=== PATIENT | female | born 1940 | race Caucasian/White ===

== ENCOUNTER 2022-10-09 10:28 | Outpatient (OUT) | payer MEDICARE, SELFPAY ==
[2022-10-09 11:21] LABS: Estimated Average Glucose 128 mg/dL; Glycohemoglobin A1C 6.1 % (4.5-6.2)
== END 2022-10-09 10:29 ==
LOC: LAB 10:32
PROVIDERS: PCP Family Medicine; Visit Provider Family Medicine
DX: E11.65 Type 2 diabetes mellitus with hyperglycemia (principal)
CPT/HCPCS: 36415; 83036

== ENCOUNTER 2023-04-13 08:17 | Outpatient (OUT) | payer MEDICARE, SELFPAY ==
[2023-04-13 08:46] LABS: Basophils Absolute Auto 0.1 10^3/uL (0.0-0.1); Eosinophils Absolute Auto 0.4 10^3/uL (0.0-0.7); Eosinophils Percent Auto 7.7 % (0.9-7.0); Hemoglobin 14.1 g/dL (12.0-16.0); Immature Granulocytes Abs Auto 0.02 10^3/uL (0.00-0.03); Immature Granulocytes Pct Auto 0.4 % (0.0-0.5); Lymphocytes Absolute Auto 1.2 10^3/uL (1.2-3.8); Lymphocytes Percent Auto 21.4 % (20.5-60.0); Mean Corpuscular HGB Conc 31.3 g/dL (29.9-35.2); Mean Corpuscular Hemoglobin 29.6 pg (26.7-34.0); Mean Corpuscular Volume 94.3 fL (81.0-99.0); Mean Platelet Volume 12.9 fL (9.5-13.5); Monocytes Absolute Auto 0.5 10^3/uL (0.3-0.8); Monocytes Percent Auto 8.9 % (1.7-12.0); Neutrophils Absolute Auto 3.4 10^3/uL (1.4-6.5); Neutrophils Percent Auto 59.6 % (43.0-75.0); Platelet Count 246 10^3/uL (150-450); Red Blood Count 4.77 10^6/uL (4.20-5.40); Red Cell Distribution Width 12.8 % (11.0-15.0); White Blood Count 5.6 10^3/uL (4.0-11.0)
[2023-04-13 09:14] LABS: Estimated Average Glucose 140 mg/dL; Glycohemoglobin A1C 6.5 % (4.5-6.2)
[2023-04-13 09:30] LABS: Alanine Aminotransferase 22 U/L (14-59); Albumin Globulin Ratio 1.2; Albumin Level 3.9 g/dL (3.4-5.0); Alkaline Phosphatase 83 U/L (46-116); Anion Gap 15.9; Aspartate Amino Transferase 20 U/L (15-37); BUN Creatinine Ratio 17.7; Bilirubin Direct 0.2 mg/dL (0.0-0.2); Bilirubin Total 1.4 mg/dL (0.2-1.0); Calcium 8.7 mg/dL (8.5-10.1); Carbon Dioxide 24.9 mmol/L (21.0-32.0); Chloride 105 mmol/L (98-107); Chol HDL Ratio 2.9; Cholesterol 164 mg/dL (<=200); Estimated GFR (African America >60 (>=60); Estimated GFR (Non-African Ame >60 (>=60); Globulin 3.3 g/dL; Glucose 154 mg/dL (74-106); HDL Cholesterol 56 mg/dL (40-60); LDL Cholesterol Calculated 92.4 mg/dL; Potassium 3.8 mmol/L (3.5-5.1); Sodium 142 mmol/L (136-145); Total Protein 7.2 g/dL (6.4-8.2); Triglycerides 78 mg/dL (<=150); VLDL CHOLESTEROL 15.6 mg/dL
== END 2023-04-13 08:18 | disposition home or self-care (01) ==
LOC: LAB 08:20
PROVIDERS: PCP Family Medicine; Visit Provider Family Medicine
DX: E11.65 Type 2 diabetes mellitus with hyperglycemia (principal); Z79.899 Other long term (current) drug therapy; I10 Essential (primary) hypertension; E78.5 Hyperlipidemia, unspecified
CPT/HCPCS: 36415; 80048; 80061; 80076; 82043; 83036; 85025

== ENCOUNTER 2024-04-15 08:12 | Outpatient (OUT) | payer MEDICARE, SELFPAY ==
[2024-04-15 08:40] LABS: Basophils Absolute Auto 0.1 10^3/uL (0.0-0.1); Basophils Percent Auto 1.5 % (0.2-2.0); Eosinophils Absolute Auto 0.3 10^3/uL (0.0-0.7); Eosinophils Percent Auto 4.4 % (0.9-7.0); Estimated Average Glucose 146 mg/dL; Glycohemoglobin A1C 6.7 % (4.5-6.2); Hematocrit 45.7 % (36.0-48.0); Hemoglobin 14.8 g/dL (12.0-16.0); Immature Granulocytes Abs Auto 0.02 10^3/uL (0.00-0.03); Immature Granulocytes Pct Auto 0.3 % (0.0-0.5); Lymphocytes Absolute Auto 1.5 10^3/uL (1.2-3.8); Lymphocytes Percent Auto 25.3 % (20.5-60.0); Mean Corpuscular HGB Conc 32.4 g/dL (29.9-35.2); Mean Corpuscular Hemoglobin 29.5 pg (26.7-34.0); Mean Platelet Volume 12.9 fL (9.5-13.5); Monocytes Absolute Auto 0.5 10^3/uL (0.3-0.8); Monocytes Percent Auto 8.5 % (1.7-12.0); Neutrophils Absolute Auto 3.5 10^3/uL (1.4-6.5); Platelet Count 233 10^3/uL (150-450); Red Blood Count 5.02 10^6/uL (4.20-5.40); Red Cell Distribution Width 13.1 % (11.0-15.0); White Blood Count 5.9 10^3/uL (4.0-11.0)
[2024-04-15 08:46] LABS: Alanine Aminotransferase 22 U/L (14-59); Albumin Globulin Ratio 1.1; Albumin Level 3.7 g/dL (3.4-5.0); Alkaline Phosphatase 87 U/L (46-116); Anion Gap 13.7; Aspartate Amino Transferase 19 U/L (15-37); Bilirubin Direct 0.2 mg/dL (0.0-0.2); Bilirubin Total 1.4 mg/dL (0.2-1.0); Carbon Dioxide 27.2 mmol/L (21.0-32.0); Chloride 103 mmol/L (98-107); Chol HDL Ratio 3.2; Cholesterol 177 mg/dL (<=200); Estimated GFR (African America >60 (>=60 mL/min/1.73m^2); Estimated GFR (Non-African Ame 57 (>=60 mL/min/1.73m^2); Globulin 3.4 g/dL; Glucose 167 mg/dL (74-106); HDL Cholesterol 56 mg/dL (40-60); LDL Cholesterol Calculated 100.8 mg/dL; Potassium 3.9 mmol/L (3.5-5.1); Sodium 140 mmol/L (136-145); Total Protein 7.1 g/dL (6.4-8.2); Triglycerides 101 mg/dL (<=150); VLDL CHOLESTEROL 20.2 mg/dL
[2024-04-15 09:11] LABS: Creatinine Urine Random 69.08 mg/dL (20.00-300.00); Microalbum Creatinine Ratio Ur 18.8 mg/g (0.0-29.9); Microalbumin Urine Random <1.3 mg/dL (<=30.0)
== END 2024-04-15 08:13 | disposition home or self-care (01) ==
LOC: LAB 08:12
PROVIDERS: PCP Family Medicine; Visit Provider Family Medicine
DX: E78.5 Hyperlipidemia, unspecified (principal); E11.65 Type 2 diabetes mellitus with hyperglycemia; I10 Essential (primary) hypertension; Z79.899 Other long term (current) drug therapy
CPT/HCPCS: 36415; 80048; 80061; 80076; 82043; 82570; 83036; 85025

== ENCOUNTER 2024-10-15 10:02 | Outpatient (OUT) | payer MEDICARE, SELFPAY ==
--- OUTSIDE RECORDS SUMMARY | 2024-10-13 10:30 | XMS_ITS | Encounter Summary ---
Author Organization [facility] Address [address] [place] [address] Care Team Providers Care Sheet Rock Layer Name Role Phone Mart Mancini MD Primary Care Provider [phone] Mart Mancini MD Unavailable Reason for Visit * Reason Comments Medicare Annual Wellness Visit Subsequen t wellness Encounter Details Date Type Department Care Team (Late st Contact Info) Description 10/13/2024 10:30 AM EDT Office Visit [facility] [address] [place] [phone] Mart Mancini MD [address] [place] [address] Medicare annual wellness visit, subsequent (Primary Dx); Type 2 diabetes mellitus with hyperglycemia, without long-term current use of insulin (HCC); Essential hypertension, benign ; Dyslipidemia ; Type 2 diabetes mellitus with other specified complication (HCC) Social History Tobacco Use Types Packs/Day Years Used Date Smoking Tobacco: Never Smokeless Tobacco: Never Alcohol Use Standard Drinks/Week Comments Never 0 (1 standard drink = 0.6 oz pur e alcohol) PHQ-2 Answer Date Recorded Patient Health Questionnaire-2 Score 0 10/13/2024 Comments Unknown Sex and Gender Information Value Date Recorded Sex Assigned at Not on file Legal Sex Female 6:44 PM EDT Gender Identity Not on file Sexual Orientation Not on file documented as of this encounter Last Filed Vital Signs Vital Sign Reading Time Taken Comments Blood Pressure 112/60 10/13/2024 10:27 AM EDT Pulse 78 10/13/2024 10:27 AM EDT Temperature 36.3 C (97.3 F) 10/13/2024 10:27 AM EDT Respiratory Rate 22 10/13/2024 10:27 AM EDT Oxygen Saturation 98% 10/13/2024 10:27 AM EDT Inhaled Oxygen Concentration - - Weight 63.5 kg (140 lb) 10/13/2024 10:27 AM EDT Height 162.6 cm (5' 4 ) 10/13/2024 10:27 AM EDT Body Mass Index 24.03 10/13/2024 10:27 AM EDT documented in this encounter Functional Status * Over the past 2 weeks, how often have you been bothered by any of the following problems? Question Answer Date of Assessment Author Little interest or pleasure in doing things Not at all 10/13/2024 10:00 AM NEVA MOREIRA Feeling down, depressed, or hopeless Not at all 09/28 10:00 AM NEVA MOREIRA Patient Health Questionnaire-2 Score 0 09/28 10:00 AM NEVA MOREIRA * Question Answer Date of Assessment Author Trouble falling or staying a sleep, or sleeping too much Not at all 10/13/2024 10:00 AM NEVA MOREIRA Feeling tired or having arnold le energy Several days 10/13/2024 10:00 AM NEVA MOREIRA Poor appetite or overeating Not at all 10/13/2024 10 :00 AM NEVA MOREIRA Feeling bad about yourself - or that you are a failure or have let yourself or your family down Not at all 10/13/2024 10:00 AM NEVA MOREIRA Trouble concentrating on thi ngs, such as reading the newspaper or watching television Not at all 10/13/2024 10:00 AM NEVA MOREIRA Moving or speaking so slowly that other people could have noticed? Or the opposite - being so fidgety or restless that you have been moving around a lot more than usual. Not at all 10/13/2024 10:00 AM NEVA MOREIRA Thoughts that you would be b álvaro off or hurting yourself in some way Not at all 10/13/2024 10:00 AM NEVA MOREIRA Patient Health Questionnaire -9 Score 1 10/13/2024 10:00 AM NEVA MOREIRA documented as of this encounter Progress Notes * Mart Mancini MD - 10/13/2024 11:06 AM EDTAssociated Problem(s): Medicare annual wellness visit, subsequent Due for labs. Discussed proper diet and regular aerobic exercise. Need aerobic exercise 5-6 days a week for 30 minutes at a time. Smaller portions and limit total calories. Tetanus every 10 years. Advised not to smoke. * Mart Mancini MD - 10/13/2024 10:30 AM EDT Images from the original note were not included. Subjective Patient ID: Aliza Nicholas is a 84 y.o. female who presents for Medicare Annual Wellness Visit Subsequent (wellness). Presents for medicare annual wellness visit. Patient stable today. Weight unchanged over the past year. Tries to stay active around house. Tries to watch diet and eat healthy. Increased fruits and vegetables. Smaller portions and limits snacking. Tries to limit total daily calories. Due for labs. Review of Systems Respiratory: Negative for cough, shortness of breath and wheezing. Cardiovascular: Negative for chest pain and palpitations. Gastrointestinal: Negative for abdominal pain, diarrhea, nausea and vomiting. Genitourinary: Negative for dysuria. Objective Physical Exam Constitutional: General: She is not in acute distress. Appearance: Normal appearance. HENT: Head: Normocephalic. Right Ear: Tympanic membrane normal. Left Ear: Tympanic membrane normal. Eyes: Extraocular Movements: Extraocular movements intact. Pupils: Pupils are equal, round, and reactive to light. Cardiovascular: Rate and Rhythm: Normal rate and regular rhythm. Heart sounds: No murmur heard. No friction rub. No gallop. Pulmonary: Effort: Pulmonary effort is normal. Breath sounds: Normal breath sounds. No wheezing, rhonchi or rales. Abdominal: General: Bowel sounds are normal. There is no distension. Palpations: Abdomen is soft. Tenderness: There is no abdominal tenderness. There is no guarding or rebound. Musculoskeletal: Cervical back: Neck supple. Right lower leg: No edema. Left lower leg: No edema. Neurological: Mental Status: She is alert. Assessment/Plan Problem List Items Addressed This Visit Type 2 diabetes mellitus with hyperglycemia, without long-term current use of insulin (HCC) Relevant Orders Hemoglobin A1c Essential hypertension, benign Dyslipidemia Medicare annual wellness visit, subsequent - Primary Due for labs. Discussed proper diet and regular aerobic exercise. Need aerobic exercise 5-6 days a week for 30 minutes at a time. Smaller portions and limit total calories. Tetanus every 10 years. Advised not to smoke. documented in this encounter Plan of Treatment Upcoming Encounters Date Type Department Care Team (Late st Contact Info) Description 04/14/2025 9:45 AM EST Office Visit [facility] [address] [place] [address] Mart Mancini MD [address] [place] [phone] Scheduled Orders Name Type Priority Associated Diagnoses Orde r Schedule Hemoglobin A1c Lab Routine Type 2 diabetes mellitus with hyperglycemia, without long-term current use of insulin (HCC) Expected: 10/13/2024 (Approximate), Expires: 10/13/2025 documented as of this encounter Visit Diagnoses Diagnosis Medicare annual wellness visit, subsequent- Primary Type 2 diabetes mellitus with hyperglycemia, without long-term current use of insulin (HCC) Essential hypertension, benign Essential hypertension, benign Dyslipidemia Other and unspecified hyperlipidemia Type 2 diabetes mellitus with other specified complication (HCC) documented in this encounter Additional Health Concerns Assessment Noted Time PHQ-9 Depression Total Score: 1 10/14/19 25 10:00 AM EDT documented as of this encounter Care Teams Sheet Rock Layer Relationship Specialty Start Date End Date Mart Mancini MD [address] [place] [address] PCP - General Family Medicine 04/10/23 Mart Mancini MD [address] [place] [address] PCP - ACO Reach 06/06/24 documented as of this encounter
--- OUTSIDE RECORDS SUMMARY | 2024-10-15 10:07 | XMS_ITS | Encounter Summary ---
Author Organization [facility] Address [address] [place] [facility] [place] [address] Care Team Providers Care Power Plant Electrician Name Role Phone Mart Mancini MD Primary Care Provider [phone] Mart Mancini MD Unavailable Encounter Details Date Type Department Care Team (Late st Contact Info) Description 10/13/2024 Bamboo flowsheet [facility] [address] [place] [address] Mart Mancini MD [address] [place] [phone] Social History Tobacco Use Types Packs/Day Years [...] on file documented as of this encounter Functional Status * Over the past 2 weeks, how often have you been bothered by any of the following problems? Question Answer Date of Assessment Author Little interest or pleasure in doing things Not at all 10/13/2024 10:00 AM EDT NEVA SEVERINO Feeling down, depressed, or hopeless Not at all 09/28 10:00 AM EDT NEVA SEVERINO Patient Health Questionnaire-2 Score 0 09/28 10:00 AM EDT NEVA SEVERINO * Question Answer Date of Assessment Author [...] NEVA MOREIRA documented as of this encounter Plan of Treatment Upcoming Encounters Date Type Department Care Team (Late st Contact Info) Description 04/14/2025 9:45 AM EST Office Visit [facility] [address] [place] [address] Mart Mancini MD [address] [place] [phone] documented as of this encounter Visit Diagnoses Not on filedocumented in this encounter Additional Health Concerns Assessment Noted Time PHQ-9 Depression Total Score: 1 10/14/19 25 10:00 AM EDT documented as of this encounter Care Teams Power Plant Electrician Relationship Specialty Start Date End Date Mart Mancini MD [address] [place] [phone] PCP - General Family Medicine 04/10/23 Mart Mancini MD [address] [place] [address] PCP - ACO Reach 06/06/24 documented as of this encounter
--- OUTSIDE RECORDS SUMMARY | 2024-10-15 10:07 | XMS_ITS | Clinical Summary ---
Author Organization [facility] Address [id number] [address] [place] [address] Care Team Providers Care Electric Transfer Operator Name Role Phone Unavailable Primary Care Provider Unavailabl e Social History Tobacco Use Types Packs/Day Years Used Date Smoking Tobacco: Never Assessed Childcare Answer Date Recorded Childcare Unknown 10/09/2018 Employment Answer Date Recorded Employment Unknown 10/09/2018 Comments Unknown Sex and Gender Information Value Date Recorded Sex Assigned at Not on file Legal Sex Female 11:23 AM EDT Gender Identity Not on file Sexual Orientation Not on file Plan of Treatment Health Maintenance Due Date Last Done Comments Depression Screening 1952 Tobacco Screening 1952 DTaP,Tdap and Td Vaccines (1 - Tdap) 1958 Zoster (Shingles) Vaccine (1 of 2) 1989 Fall Risk Screening 2004 Influenza Vaccine 12/29/2024 Medical Devices Not on file
--- OUTSIDE RECORDS SUMMARY | 2024-10-15 10:07 | XMS_ITS | Clinical Summary ---
Author Organization [facility] Address [address] [facility] [place] [address] Phone Care Team Providers Care High Lighter Name Role Phone Unavailable Primary Care Provider Unavailabl e Social History Tobacco Use Types Packs/Day Years Used Date Smoking Tobacco: Never Assessed Comments Unknown Sex and Gender Information Value Date Recorded Sex Assigned at Not on file Legal Sex Female 11:06 AM EST Gender Identity Not on file Sexual Orientation Not on file Plan of Treatment Not on file
--- OUTSIDE RECORDS SUMMARY | 2024-10-15 10:07 | XMS_ITS | Encounter Summary ---
Author Organization [facility] Address [address] [facility] [place] [address] Care Team Providers Care Thermocouple Tester Name Role Phone Mart Manciin MD Primary Care Provider [phone] Mart Mancini MD Unavailable Encounter Details Date Type Department Care Team ([facility] Contact Info) Description 04/13/2023 Orders Only [facility] [address] [place] [address] Mart Mancini MD [address] [place] [address] Social History Tobacco Use Types Packs/Day Years Used Date Smoking Tobacco: Never Smokeless Tobacco: Never Alcohol Use Standard Drinks/Week Comments Never 0 (1 standard drink = 0.6 oz pur e alcohol) Comments Unknown Sex and Gender Information Value Date Recorded Sex Assigned at Not on file Legal Sex Female 6:44 PM EDT Gender Identity Not on file Sexual Orientation Not on file documented as of this encounter Plan of Treatment Upcoming Encounters Date Type Department Care Team (Late Contact Info) Description 04/14/2025 9:45 AM EST Office Visit [facility] [address] [place] [address] Mart Mancini MD [address] [place] [address] documented as of this encounter Visit Diagnoses Not on filedocumented in this encounter Care Teams Thermocouple Tester Relationship Specialty Start Date End Date Mart Mancini MD [address] [place] [phone] PCP - General Family Medicine 04/10/23 Mart Mancini MD [address] [place] [phone] PCP - ACO Reach 06/06/24 documented as of this encounter
--- OUTSIDE RECORDS SUMMARY | 2024-10-15 10:07 | XMS_ITS | Encounter Summary ---
Author Organization [facility] Address [address] [facility] [place] [address] Care Team Providers Care Copier Operator Name Role Phone Mart Mancini MD Primary Care Provider [phone] Mart Mancini MD Unavailable Encounter Details Date Type Department Care Team ([facility] Contact Info) Description 04/11/2023 Abstract [facility] [address] [place] [address] Mart Mancini MD [address] [place] [address] Social History Tobacco Use Types [...] Upcoming Encounters Date Type Department Care Team ([facility] Contact Info) Description 04/14/2025 9:45 AM EST Office Visit [facility] [address] [place] [address] Mart Mancini MD [address] [place] [address] documented as of this encounter Visit Diagnoses Not on filedocumented in this encounter Care Teams Copier Operator Relationship Specialty Start Date End Date Mart Mancini MD [address] [place] [address] PCP - General Family Medicine 04/10/23 Mart Mancini MD [address] [place] [phone] PCP - ACO Reach 06/06/24 documented as of this encounter
--- OUTSIDE RECORDS SUMMARY | 2024-10-15 10:27 | XMS_ITS | CCD ---
Author Organization [facility] Care Team Providers Care Receiver Setter Name Role Phone DR MART NEIL Primary Care Unavailable FIOR DOWLING Consulting Unavailable FIOR DOWLING Admitting Unavailable FIOR DOWLING Attending Unavailable RASHAAD, DR MART Garcia Admitting Unavailable RASHAAD, DR MART Garcia Attending Unavailable RASHAAD, DR MART Garcia Primary Care Unavailable RASHAAD, DR MART Garcia Consulting Unavailable RASHAAD, DR MART Garcia Admitting Unavailable RASHAAD, DR MART Garcia Attending Unavailable RASHAAD, DR MART Garcia Primary Care Unavailable RASHAAD, DR MART Garcia Consulting Unavailable Mart Neil MD Primary Care Provider Matr Neil MD Unavailable MART NEIL Attending Unavailable RASHAAD, MART Attending Unavailable RASHAAD, MART Attending Unavailable Medications Current Medications Medication Drug Class(es) Dates Sig (Normalized) Sig (Original) amLODIPine 10 mg oral tablet (7 sources) Dihydropyridine Calcium Channel Corazon Start: 09-08-2024 take 1 tablet by mouth once daily amLODIPine (Norvasc) 10 MG tablet Indications: Other specified cough , Cough TAKE 1 TABLET BY MOUTH EVERY DAY 90 tablet 3 09/08/2024 Active Start: 09-03-2023 take 1 tablet by karthik th once daily amLODIPine (Norvasc) 10 MG tablet Indications: Other specified cough , Cough TAKE 1 TABLET BY MOUTH EVERY DAY 90 tablet 3 09/03/2023 Active glipiZIDE 5 mg oral tablet (7 sources) Sulfonylurea Start: 12-24-2023 take 1 tablet by mouth once daily glipiZIDE (Glucotrol) 5 MG tablet Indications: Type 2 diabetes mellitus with hyperglycemia (HCC) TAKE 1 TABLET BY MOUTH EVERY DAY 90 tablet 3 12/24/2023 Active lovastatin 20 mg oral tablet (7 sources) HMG-CoA Reductase Inhibitor Start: 06-02-2024 take 1 tablet by mouth once daily lovastatin (Mevacor) 20 MG tablet Indications: Hyperlipidemia, unspecified TAKE 1 TABLET BY MOUTH EVERY DAY 90 tablet 3 06/02/2024 Active Start: 09-03-2023 take 1 tablet by karthik th once daily lovastatin (Mevacor) 20 MG tablet Indications: Hyperlipidemia, unspecified (CMS/HCC) TAKE 1 TABLET BY MOUTH EVERY DAY 90 tablet 3 09/03/2023 Active 24 hr metFORMIN hydrochloride 500 mg extended release oral tablet (7 sources) Biguanide Start: 08-20-2024 take 1 tablet by mouth once daily metFORMIN XR (Glucophage-XR) 500 MG 24 hr tablet Indications: Type 2 diabetes mellitus without complications (HCC) TAKE 1 TABLET BY MOUTH EVERY DAY 90 tablet 1 08/20/2024 Active Start: 02-25-2024 take 1 tablet by karthik th once daily metFORMIN XR (Glucophage-XR) 500 MG 24 hr tablet Indications: Type 2 diabetes mellitus without complications (CMS/HCC) TAKE 1 TABLET BY MOUTH EVERY DAY 90 tablet 1 02/25/2024 Active Problems Active Problems Problem Classification Problem Date Documented Date Episodic/Chronic Diabetes mellitus with complications (17 sources) Type 2 diabetes mellitus with hyperglycemia; Translations: [Hyperglycemia due to type 2 diabetes mellitus] Onset: 03-16-2022 Chronic Disorders of lipid metabolism (12 sources) Hyperlipidemia, unspecified; Translations: [Dyslipidemia] Onset: 03-20-2022 04-11-2024 Chronic Essential hypertension (11 sources) Benign essential hypertension; Translations: [Essential (primary) hypertension] Onset: 04-11-2023 04-11-2024 Chronic Gastritis and duodenitis (7 sources) Chronic superficial gastritis; Translations: [Chronic superficial gastritis without bleeding] Onset: 04-11-2023 Resolved: 04-11-2023 04-11-2023 Chronic Genitourinary symptoms and ill-defined conditions (4 sources) Dysuria; Translations: [Personal history of urinary (tract) infections] Onset: 08-14-2022 Episodic Other aftercare (1 source) Other intermodal truck driver (current) drug therapy; Translations: [OTH CUSTODIAL CURRENT DRUG THERAPY] Onset: 08-15-2022 Episodic Other upper respiratory disease (9 sources) Allergic rhinitis due to pollen; Translations: [Allergic rhinitis due to pollen] Onset: 04-11-2023 04-11-2024 Chronic Retinal detachments; defects; vascular occlusion; and retinopathy (7 sources) Degenerative disorder of macula ; Translations: [Unspecified macular degeneration] Onset: 04-11-2023 04-11-2023 Chronic Spondylosis; intervertebral disc disorders; other back problems (9 sources) Degeneration of lumbar intervertebral disc; Translations: [Degeneration of intervertebral disc of lumbar region with discogenic back pain] Onset: 04-11-2023 04-11-2024 Chronic Urinary tract infections (1 source) Urinary tract infection, site not specified; Translations: [UTI SITE NOT SPECIFIED] Onset: 08-15-2022 Episodic Past or Other Problems Problem Classification Problem Date Documented Da te Episodic/Chronic Coronary atherosclerosis and other heart disease (7 sources) Coronary arteriosclerosis; Translations: [Atherosclerotic heart disease of [place] coronary artery without angina pectoris] Onset: 04-11-2023 Resolved: 04-11-2023 04-11-2023 Chronic Hyperplasia of prostate (7 sources) Benign prostatic hypertrophy without outflow obstruction; Translations: [Benign prostatic hyperplasia without lower urinary tract symptoms] Onset: 04-11-2023 Resolved: 04-11-2023 04-11-2023 Chronic Mood disorders (2 sources) Mood disorders Onset: 10-13-2024 10-13-2024 Other aftercare (9 sources) Long-term current use of drug therapy; Translations: [Other retirement (current) drug therapy] Onset: 04-11-2023 04-11-2024 Episodic Other liver diseases (7 sources) Fatty (change of) liver, not elsewhere classified; Translations: [Other chronic nonalcoholic liver disease] Onset: 04-11-2023 Resolved: 04-11-2023 04-11-2023 Chronic Results Test Name Value Interpretation Reference Range Facility ALL CBC WITH AUTO DIFFon BASOPHILS ABSOLUTE AUTO 0.1 [facility] Basophils/100 WBC (Bld) 1.5 % 0.2 - 2.0 % [facility] Eosinophils/100 WBC (Bld) 4.4 % 0.9 - 7.0 % [facility] Erythrocyte distribution width (RBC) [Ratio] 13.1 % 11.0 - 15.0 % [facility] Hematocrit (Bld) [Volume fraction] 45.7 % 36.0 - 48.0 % [facility] [Mass/Vol] 14.8 g/dL 12.0 - 16.0 g/dL [facility] IMMATURE GRANULOCYTES ABS AUTO 0.02 [facility] Immature granulocytes/100 WBC (Bld) 0.3 % 0.0 - 0.5 % [facility] LYMPHOCYTES ABSOLUTE AUTO 1.5 [facility] Lymphocytes/100 WBC (Bld) 25.3 % 20.5 - 60.0 % [facility] MCH (RBC) [Entitic mass] 29.5 pg 26.7 - 34.0 pg [facility] MCHC (RBC) [Mass/Vol] 32.4 g/dL 29.9 - 35.2 g/dL [facility] MCV (RBC) [Entitic vol] 91 fL 81.0 - 99.0 fL [facility] MONOCYTES ABSOLUTE AUTO 0.5 [facility] Monocytes/100 WBC (Bld) 8.5 % 1.7 - 12.0 % [facility] NEUTROPHILS ABSOLUTE AUTO 3.[address] [facility] Neutrophils/100 WBC (Bld) 60 % 43.0 - 75.0 % [facility] Platelet mean volume (Bld) [Entitic vol] 12.9 fL 9.5 - 13.5 fL [facility] EO # 0.3 [facility] PLT 233 [facility] RBC 5.02 [facility] WBC 5.9 [facility] CULTURE URINEon 08-14-2022 CULTURE URINE Culture Observations: RASHEEDA TO FOLLOW. Isolate 1 Escherichia coli >100,000 cfu/mL of Normal [facility] Comment on above: Performed By: #### U RCX #### [facility] [address] [place] [address] Dr. Ryan Gee ER URINE PROFILEon 3 Bilirubin Ql (U) Negative Normal NEGATIVE [facility] Comment on above: Performed By: #### ROMY DIXON #### [facility] [address] [place] [address] Dr. Ryan Gee Clarity (U) CLEAR Normal CLEAR [facility] Comment on above: Performed By: #### E ROMY KHALIL #### [facility] [address] [place] [address] Dr. Ryan Gee Color (U) ORANGE Abnormal YELLOW [facility] Comment on above: Performed By: #### E PLACIDOR UMICRO #### [facility] [address] [place] [address] Dr. Ryan DOMINGO A micrscopic examination will be performed if indicated. Normal [facility] Comment on above: Performed By: #### E RUR, UMICRO #### [facility] [address] [place] [address] Dr. Ryan Gee Glucose Ql (U) 250 mg/dl Abnormal NEGATIVE [facility] Comment on above: Performed By: #### E RUR, UMICRO #### [facility] [address] [place] [address] Dr. Ryan Gee Hemoglobin Ql (U) LARGE Abnormal NEGATIVE [facility] Comment on above: Performed By: #### E RUR, UMICRO #### [facility] [address] [place] [address] Dr. Ryan Gee Ketones Ql (U) Negative Normal NEGATIVE [facility] Comment on above: Performed By: #### E RUR, UMICRO #### [facility] [address] [place] [address] Dr. Ryan Gee LEUKOCYTES MODERATE Abnormal NEGATIVE [facility] Comment on above: Performed By: #### E RUR, UMICRO #### [facility] [address] [place] [address] Dr. Ryan Gee Nitrite Ql (U) Positive Abnormal NEGATIVE [facility] Comment on above: Performed By: #### E RUR, UMICRO #### [facility] [address] [place] [address] Dr. Ryan Gee pH (U) 5.0 [pH] Normal 5-9 [facility] Comment on above: Performed By: #### E RUR, UMICRO #### [facility] [address] [place] [address] Dr. Ryan Gee Protein (U) [Mass/Vol] 100 mg/dL Abnormal NEGATIVE/ TRACE [facility] Comment on above: Performed By: #### E RUR, UMICRO #### [facility] [address] [place] [address] Dr. Ryan Gee SPEC GRAVITY 1.025 Normal 1.005-<=1.025 [facility] Comment on above: Performed By: #### Glenn KHALIL, UMICRO #### [facility] [address] [place] [address] Dr. Ryan Gee UR MICRO IND INDICATED Normal [facility] Comment on above: Performed By: #### Glenn KHALIL UMICRO #### [facility] [address] [place] [address] Dr. Ryan Gee Urobilinogen Qn (U) 1.0 {Cherrie'U}/dL Normal 0.2 - 1. 0 [facility] Comment on above: Performed By: #### Glenn KHALIL UMICRO #### [facility] [address] [place] [address] Dr. Ryan Gee URINE MICROSCOPIC ONLYon BACTERIA SMALL Abnormal NONE SEEN [facility] Comment on above: Performed By: #### Glenn KHALIL UMICRO #### [facility] [address] [place] [address] Dr. Ryan Gee Bacteria identified Cx Nom (U) INDICATED Normal [facility] Comment on above: Performed By: #### Glenn KHALIL UMICRO #### [facility] [address] [place] [address] Dr. Ryan Gee CAST NONE SEEN Normal NONE SEEN [facility] Comment on above: Performed By: #### Glenn KHALIL UMICRO #### [facility] [address] [place] [address] Dr. Ryan Gee Crystals LM Nom (Urine sed) NONE SEEN Normal NONE SEEN [facility] Comment on above: Performed By: #### Glenn KHALIL UMICRO #### [facility] [address] [place] [address] Dr. Ryan Gee Epithelial cells LM Ql (Urine sed) MODERATE Abnormal NONE SEEN /RARE [facility] Comment on above: Performed By: #### Glenn KHALIL UMICRO #### [facility] [address] [place] [address] Dr. Ryan Gee MUCOUS NONE SEEN Normal NONE SEEN [facility] Comment on above: Performed By: #### ROMY DIXON #### [facility] [address] [place] [address] Dr. Ryan Gee RBC (U) [#/Vol] /uL Abnormal 0-2 [facility] Comment on above: Performed By: #### ROMY DIXON #### [facility] [address] [place] [address] Dr. Ryan Gee WBC (U) [#/Vol] /uL Abnormal NONE SEEN [facility] Comment on above: Performed By: #### ROMY DIXON #### [facility] [address] [place] [address] Dr. Ryan Gee CBC AUTO DIFFon 03-16-2022 BASO # 0.1 103/ul Normal 0.0-0.1 [facility] Comment on above: Performed By: #### C BC #### [facility] [address] [place] [address] Dr. Ryan Gee Basophils/100 WBC (Bld) 1.7 % Normal 0.2-2.0 [facility] Comment on above: Performed By: #### C BC #### [facility] [address] [place] [address] Dr. Ryan Gee EO # 0.1 103/ul Normal 0.0-0.7 [facility] Comment on above: Performed By: #### C BC #### [facility] [address] [place] [address] Dr. Ryan Gee Eosinophils/100 WBC (Bld) 2.6 % Normal 0.9-7.0 [facility] Comment on above: Performed By: #### C BC #### [facility] [address] [place] [address] Dr. Ryan Gee Erythrocyte distribution width (RBC) [Ratio] 12.9 % Normal 11.0-15.0 [facility] Comment on above: Performed By: #### C BC #### [facility] [address] [place] [address] Dr. Ryan Gee Hematocrit (Bld) [Volume fraction] 45.7 % Normal 36.0-48.0 [facility] Comment on above: Performed By: #### C BC #### [facility] [address] [place] [address] Dr. Ryan Gee Hemoglobin (Bld) [Mass/Vol] 15.0 g/dL Normal 12.0-16.0 [facility] Comment on above: Performed By: #### C BC #### [facility] [address] [place] [address] Dr. Ryan Gee IG # 0.01 10e3/ul Normal 0.00-0.03 [facility] Comment on above: Performed By: #### C BC #### [facility] [address] [place] [address] Dr. Ryan Gee IG % 0.2 % Normal 0.0-0.5 [facility] Comment on above: Performed By: #### C BC #### [facility] [address] [place] [address] Dr. Ryan Gee LYMPH # 1.2 103/ul Normal 1.2-3.8 [facility] Comment on above: Performed By: #### C BC #### [facility] [address] [place] [address] Dr. Ryan Gee Lymphocytes/100 WBC (Bld) 26.1 % Normal 20.5-60.0 [facility] Comment on above: Performed By: #### C BC #### [facility] [address] [place] [address] Dr. Ryan Gee MANUAL DIFF REQ NO Normal [facility] Comment on above: Performed By: #### C BC #### [facility] [address] [place] [address] Dr. Ryan Gee MCH (RBC) [Entitic mass] 29.7 pg Normal 26.7-34.0 [facility] Comment on above: Performed By: #### C BC #### [facility] [address] [place] [address] Dr. Ryan Gee MCHC (RBC) [Mass/Vol] 32.8 g/dL Normal 29.9-35.2 [facility] Comment on above: Performed By: #### C BC #### [facility] [address] [place] [address] Dr. Ryan Gee MCV (RBC) [Entitic vol] 90.5 fL Normal 81.0-99.0 [facility] Comment on above: Performed By: #### C BC #### [facility] [address] [place] [address] Dr. Ryan Gee MONO # 0.6 103/ul Normal 0.3-0.8 [facility] Comment on above: Performed By: #### C BC #### [facility] [address] [place] [address] Dr. Ryan Gee Monocytes/100 WBC (Bld) 13.9 % Critically high 1.7-12.0 [facility] Comment on above: Performed By: #### C BC #### [facility] [address] [place] [address] Dr. Ryan Gee NEUT # 2.5 103/ul Normal 1.4-6.5 [facility] Comment on above: Performed By: #### C BC #### [facility] [address] [place] [address] Dr. Ryan Gee Neutrophils/100 WBC (Bld) 55.5 % Normal 43.0-75.0 [facility] Comment on above: Performed By: #### C BC #### [facility] [address] [place] [address] Dr. Ryan Gee Platelet mean volume (Bld) [Entitic vol] 13.4 fL Normal 9.5-13.5 [facility] Comment on above: Performed By: #### C BC #### [facility] [address] [place] [address] Dr. Ryan Gee PLT 201 103/ul Normal 150-450 [facility] Comment on above: Performed By: #### C BC #### [facility] [address] [place] [address] Dr. Ryan Gee RBC 5.05 106/ul Normal 4.20-5.40 [facility] Comment on above: Performed By: #### C BC #### [facility] [address] [place] [address] Dr. Ryan Gee WBC 4.6 103/ul Normal 4.0-11.0 [facility] Comment on above: Performed By: #### C BC #### [facility] [address] [address] [address] Ryan Gee GLYCOHEMOGLOBIN A1Con 2021 ADA RECOMMENDATION SEE BELOW Normal [facility] Comment on above: Result Comment: ADA RECOMMENDED LIMIT 4.0 - 6.0 ADA THERAPEUTIC TARGET < 7.0 ACTION SUGGESTED > 7.0 Performed By: #### A 1C #### [facility] [address] [place] [address] Dr. Ryan Gee Glucose [Mass/Vol] 137 mg/dL Normal [facility] Comment on above: Performed By: #### A 1C #### [facility] [address] [place] [address] Dr. Ryan Gee HbA1c (Bld) [Mass fraction] 6.4 % Critically high 4.5-6.2 [facility] Comment on above: Performed By: #### A 1C #### [facility] [address] [place] [address] Dr. Ryan Gee LIPID PROFILEon 03-16-2022 CHOL-HDL RATIO NORM SEE BELOW Normal [facility] Comment on above: Result Comment: 3.3 - 4.4 LOW RISK 4.4 - 7.1 AVERAGE RISK 7.1 - 11.0 MODERATE RISK >11.0 HIGH RISK Performed By: #### B MP, LIVER, LIPID #### [facility] [address] [address] [address] Ryan Gee Cholesterol [Mass/Vol] 165 mg/dL Normal <=200 [facility] Comment on above: Performed By: #### B MP, LIVER, LIPID #### [facility] [address] [place] [address] Dr. Ryan Gee Cholesterol in HDL [Mass/Vol] 50 mg/dL Normal 40-60 [facility] Comment on above: Performed By: #### B MP, LIVER, LIPID #### [facility] [address] [address] [address] Ryan Gee Cholesterol in LDL [Mass/Vol] 78.2 mg/dL Normal [facility] Comment on above: Performed By: #### B MP, LIVER, LIPID #### [facility] [address] [address] [address] Ryan Gee Cholesterol.total/Cho lesterol in HDL [Mass ratio] 3.3 {ratio} Normal [facility] Comment on above: Performed By: #### B MP, LIVER, LIPID #### [facility] [address] [address] [address] Ryan Gee HDL NORMAL > or = 60 mg/dl - LOW CARDIOVASCULAR RISK <40 mg/dl - HIGH CARDIOVASCULAR RISK Normal [facility] Comment on above: Performed By: #### B MP, LIVER, LIPID #### [facility] [address] [address] [address] Ryan Gee LDL CALC NORMAL SEE BELOW Normal [facility] Comment on above: Result Comment: <100 mg/dl OPTIMAL 100 - 129 mg/dl NEAR OR ABOVE OPTIMAL 130 - 159 mg/dl BORDERLINE HIGH 160 - 189 mg/dl HIGH >190 mg/dl VERY HIGH Performed By: #### B MP, LIVER, LIPID #### [facility] [address] [address] [address] Ryan Gee Triglyceride [Mass/Vol] 184 mg/dL Critically high <=150 [facility] Comment on above: Performed By: #### B MP, LIVER, LIPID #### [facility] [address] [address] [address] Ryan Gee VLDL CALC 36.8 mg/dL Normal [facility] Comment on above: Performed By: #### B MP, LIVER, LIPID #### [facility] [address] [address] [address] Ryan Gee LIVER PROFILEon 03-16-2022 Albumin [Mass/Vol] 4.0 g/dL Normal 3.4-5.0 [facility] Comment on above: Performed By: #### B MP, LIVER, LIPID #### [facility] [address] [address] [address] Ryan Gee Albumin/Globulin [Mass ratio] 1.3 {ratio} Normal [facility] Comment on above: Performed By: #### B MP, LIVER, LIPID #### [facility] [address] [address] [address] Ryan Gee ALP [Catalytic activity/Vol] 80 U/L Normal 46-116 [facility] Comment on above: Performed By: #### B MP, LIVER, LIPID #### [facility] [address] [address] [address] Ryan Gee ALT [Catalytic activity/Vol] 22 U/L Normal 14-59 [facility] Comment on above: Performed By: #### B MP, LIVER, LIPID #### [facility] [address] [address] [address] Ryan Gee AST [Catalytic activity/Vol] 19 U/L Normal 15-37 [facility] Comment on above: Performed By: #### B MP, LIVER, LIPID #### [facility] [address] [address] [address] Ryan Gee BILI, CONJUGATED 0.2 mg/dL Normal 0.0-0.2 [facility] Comment on above: Performed By: #### B MP, LIVER, LIPID #### [facility] [address] [address] [address] Ryan Gee Bilirubin [Mass/Vol] 1.2 mg/dL Critically high 0.2-1.0 [facility] Comment on above: Performed By: #### B MP, LIVER, LIPID #### [facility] [address] [address] [address] Ryan Gee Globulin (S) [Mass/Vol] 3.1 g/dL Normal [facility] Comment on above: Performed By: #### B MP, LIVER, LIPID #### [facility] [address] [address] [address] Ryan Gee Protein [Mass/Vol] 7.1 g/dL Normal 6.4-8.2 [facility] Comment on above: Performed By: #### B MP, LIVER, LIPID #### [facility] [address] [address] [address] Ryan Gee MICROALBUMIN, RAND URon 11- mALB 4.6 mg/L Normal <=30.0 [facility] Comment on above: Performed By: #### M ALBR #### [facility] [address] [address] [address] Ryan Gee PROF CHEM 8 (BAS METB)on Anion gap [Moles/Vol] 10.1 mmol/L Normal [facility] Comment on above: Performed By: #### B MP, LIVER, LIPID #### [facility] [address] [place] [address] Dr. Ryan Gee Calcium [Mass/Vol] 9.4 mg/dL Normal 8.5-10.1 [facility] Comment on above: Performed By: #### B MP, LIVER, LIPID #### [facility] [address] [place] [address] Dr. Ryan Gee Chloride [Moles/Vol] 101 mmol/L Normal 98-107 [facility] Comment on above: Performed By: #### B MP, LIVER, LIPID #### [facility] [address] [place] [address] Dr. Ryan Gee CO2 [Moles/Vol] 29.8 mmol/L Normal 21.0-32.0 [facility] Comment on above: Performed By: #### B MP, LIVER, LIPID #### [facility] [address] [place] [address] Dr. Ryan Gee Creatinine [Mass/Vol] 0.77 mg/dL Normal 0.55-1.02 [facility] Comment on above: Performed By: #### B MP, LIVER, LIPID #### [facility] [address] [place] [address] Dr. Ryan Gee EGFR-AF ANGOLAN >60 Normal >=60 [facility] [facility] Comment on above: Performed By: #### B MP, LIVER, LIPID #### [facility] [address] [address] [address] Ryan Gee EGFR-NON AF ANGOLAN >60 Normal >=60 [facility] Comment on above: Performed By: #### B MP, LIVER, LIPID #### [facility] [address] [address] [address] Ryan Gee Glucose [Mass/Vol] 109 mg/dL Critically high 74-106 [facility] Comment on above: Performed By: #### B MP, LIVER, LIPID #### [facility] [address] [address] [address] Ryan Gee Potassium [Moles/Vol] 3.9 mmol/L Normal 3.5-5.1 [facility] Comment on above: Performed By: #### B MP, LIVER, LIPID #### [facility] [address] [address] [address] Ryan Gee Sodium [Moles/Vol] 137 mmol/L Normal 136-145 [facility] Comment on above: Performed By: #### B MP, LIVER, LIPID #### [facility] [address] [address] [address] Ryan Gee Urea nitrogen [Mass/Vol] 12.0 mg/dL Normal 7.0-18.0 [facility] Comment on above: Performed By: #### B MP, LIVER, LIPID #### [facility] [address] [address] [address] Ryan Gee Urea nitrogen/Creatinine [Mass ratio] 15.6 mg/mg Normal [facility] Comment on above: Performed By: #### B MP, LIVER, LIPID #### [facility] [address] [address] [address] Ryan Gee GLYCOHEMOGLOBIN A1Con 2021 ADA RECOMMENDATION SEE BELOW Normal [facility] Comment on above: Result Comment: ADA RECOMMENDED LIMIT 4.0 - 6.0 ADA THERAPEUTIC TARGET < 7.0 ACTION SUGGESTED > 7.0 Performed By: #### A 1C #### [facility] [address] [address] [address] Ryan Gee Glucose [Mass/Vol] 194 mg/dL Normal [facility] Comment on above: Performed By: #### A 1C #### [facility] [address], [place] [address] Dr. Ryan Gee HbA1c (Bld) [Mass fraction] 8.4 % Critically high 4.5-6.2 [facility] Comment on above: Performed By: #### A 1C #### [facility] [address], [place] [address] Dr. Ryan Gee Vital Signs Date Time Vital Sign Value Performing Clinician Payal hubbard 10-13-2024 10:270400 Body height 162.6 cm Mart Neil MD Work Phone: [facility] 10-13-2024 10:27-0400 Body mass index (BMI) [Ratio] 24.03 kg/m2 Mart Neil MD Work Phone: [facility] 10-13-2024 10:27-0400 Body temperature 97.3 [degF] Mart Neil MD Work Phone: [facility] 10-13-2024 10:27-0400 Body weight 63.5 kg Mart Neil MD Work Phone: [facility] 10-13-2024 10:27-0400 Diastolic blood pressure 60 mm[Hg] Mart Neil MD Work Phone: [facility] 10-13-2024 10:27-0400 Heart rate 78 /min Mart Neil MD Work Phone: [facility] 10-13-2024 10:27-0400 Respiratory rate 22 /min Mart Neil MD Work Phone: [facility] 10-13-2024 10:27-0400 SaO2% (BldA) [Mass fraction] 98 % Mart Neil MD Work Phone: [facility] 10-13-2024 10:27-0400 Systolic blood pressure 112 mm[Hg] Mart Neil MD Work Phone: [facility] 04-11-2024 10:20-0500 Body height 162.6 cm Mart Neil MD Work Phone: [facility] 04-11-2024 10:20-0500 Body mass index (BMI) [Ratio] 23.17 kg/m2 Mart Neil MD Work Phone: [facility] 04-11-2024 10:20-0500 Body temperature 97.11 [degF] Mart Neil MD Work Phone: [facility] 04-11-2024 10:20-0500 Body weight 61.24 kg Mart Neil MD Work Phone: [facility] 04-11-2024 10:20-0500 Diastolic blood pressure 64 mm[Hg] Mart Neil MD Work Phone: [facility] 04-11-2024 10:20-0500 Heart rate 78 /min Mart Neil MD Work Phone: [facility] 04-11-2024 10:20-0500 Respiratory rate 24 /min Mart Neil MD Work Phone: [facility] 04-11-2024 10:20-0500 SaO2% (BldA) [Mass fraction] 98 % Mart Neil MD Work Phone: [facility] 04-11-2024 10:20-0500 Systolic blood pressure 126 mm[Hg] Mart Neil MD Work Phone: [facility] Healthcare Encounters Encounter Date Encounter Type Care Provider Facility Start: 10-13-2024 End: 10-13-2024 Bamboo flowsheet Mart Neil MD Work Phone: [facility] Start: 10-13-2024 End: 10-13-2024 Bamboo flowsheet Mart Neil MD Work Phone: [facility] Start: 10-13-2024 End: 10-13-2024 Patient encounter procedure Mart Neil MD Work Phone: [facility] Healthcare Work Phone: Start: 10-13-2024 End: 10-13-2024 Postop follow up visit related to original px Mart Neil MD Work Phone: [facility] Comment on above: Medicare annual well ness visit, subsequent (Primary Dx); Type 2 diabetes mellitus with hyperglycemia, without long-term current use of insulin (HCC); Essential hypertension, benign ; Dyslipidemia ; Type 2 diabetes mellitus with other specified complication (HCC) Start: 10-13-2024 End: 10-13-2024 ambulatory MART NEIL Not Available Start: 04-15-2024 End: 04-15-2024 Clinisync Result Encounter Mart Neil MD Work Phone: [facility] Unsolicited Start: 04-15-2024 End: 04-15-2024 Clinisync Result Encounter Mart Neil MD Work Phone: [facility] Unsolicited Start: 04-11-2024 End: 04-11-2024 Bamboo flowsheet Mart Neil MD Work Phone: [facility] Start: 04-11-2024 End: 04-11-2024 Bamboo flowsheet Mart Neil MD Work Phone: [facility] Start: 04-11-2024 End: 04-11-2024 Office outpatient visit 25 minutes Mrat Neil MD Work Phone: [facility] Comment on above: Type 2 diabetes susanne itus with hyperglycemia, without long-term current use of insulin (CMS/HCC) (Primary Dx); Essential hypertension, benign (CMS/HCC); Degeneration of intervertebral disc of lumbar region with discogenic back pain; Seasonal allergic rhinitis due to pollen; Dyslipidemia (CMS/HCC); Encounter for long-term (current) use of medications Start: 04-11-2024 End: 04-11-2024 ambulatory MART NEIL Not Available Start: 10-16-2023 End: 10-16-2023 ambulatory MART NEIL Not Available Start: 08-14-2022 End: 08-14-[address] MART NEIL Facility: Start: 03-16-2022 End: 03-17-[address] MART NEIL Facility:[facility] Start: 09-13-2021 End: 09-14-[address] MART NEIL Facility:[facility] Procedures Date Procedure Procedure Detail Performing Clinician Start: 04-15-2024 ALL CBC WITH AUTO DIFF Mart Neil MD Work Phone: Plan of Treatment Date Care Activity Detail Author Start: 04-15-2025 Urine screening for protein Diabetes: Urine Protein Screening [facility] Start: 04-14-2025 End: 04-14-2025 Patient encounter procedure 04/14/2025 9:45 AM EST Office Visit [facility] [address] [place] [phone] Mart Neil MD [address] [place] [phone] [facility] Start: 04-11-2025 Glaucoma screening Diabetes: R etinopathy Screening [facility] Comment on above: Postponed from 03/04 (Patient Refused) Start: 10-14-2024 Hemoglobin A1c measurement Diabetes: Hemoglobin A1C [facility] Start: 10-13-2024 End: 10-13-2025 Hemoglobin A1c/Hemoglobin.total in Blood Hemoglobin A1c Lab Routine Type 2 diabetes mellitus with hyperglycemia, without long-term current use of insulin (HCC) Expected: 10/13/2024 (Approximate), Expires: 10/13/2025 [facility] Work Phone: Comment on above: Expected: 10/13/2024 (Approximate), Expires: 10/13/2025 Start: 10-13-2024 End: 10-13-2024 Patient encounter procedure [facility] Comment on above: Arrived Start: 04-13-2024 Urine screening for protein Diabetes: Urine Protein Screening [facility] Start: 04-11-2024 End: 04-11-2025 Basic metabolic 1998 panel - Serum or Plasma Basic metabolic panel Lab Routine Essential hypertension, benign (CMS/HCC) Expected: 04/11/2024 (Approximate), Expires: 04/11/2025 [facility] Comment on above: Expected: 04/11/2024 (Approximate), Expires: 04/11/2025 Start: 04-11-2024 End: 04-11-2025 CBC W Auto Differential panel - Blood CBC and differential Lab Routine Encounter for long-term (current) use of medications Expected: 04/11/2024 (Approximate), Expires: 04/11/2025 [facility] Comment on above: Expected: 04/11/2024 (Approximate), Expires: 04/11/2025 Start: 04-11-2024 End: 04-11-2025 Hemoglobin A1c/Hemoglobin.total in Blood Hemoglobin A1c Lab Routine Type 2 diabetes mellitus with hyperglycemia, without long-term current use of insulin ([facility]) Expected: 04/11/2024 (Approximate), Expires: 04/11/2025 [facility] Comment on above: Expected: 04/11/2024 (Approximate), Expires: 04/11/2025 Start: 04-11-2024 End: 04-11-2025 Hepatic function 2000 panel - Serum or Plasma Hepatic function panel Lab Routine Encounter for long-term (current) use of medications Expected: 04/11/2024 (Approximate), Expires: 04/11/2025 [facility] Comment on above: Expected: 04/11/2024 (Approximate), Expires: 04/11/2025 Start: 04-11-2024 End: 04-11-2025 Lipid 1996 panel - Serum or Plasma Lipid panel Lab Routine Dyslipidemia ([facility]) Expected: 04/11/2024 (Approximate), Expires: 04/11/2025 [facility] Comment on above: Expected: 04/11/2024 (Approximate), Expires: 04/11/2025 Start: 04-11-2024 End: 04-11-2025 Microalbumin/Creatinine panel in random Urine Microalbumin / creatinine, urine ratio Lab Routine Type 2 diabetes mellitus with hyperglycemia, without long-term current use of insulin ([facility]/HCC) Expected: 04/11/2024 (Approximate), Expires: 04/11/2025 [facility] Work Phone: Comment on above: Expected: 04/11/2024 (Approximate), Expires: 04/11/2025 Start: 04-11-2024 End: 04-11-2024 Patient encounter procedure 04/11/2024 10:30 AM EST Office Visit [facility] [address] [place] [phone] Mart Neil MD [address] [place] [phone] Arrived [facility] Comment on above: Arrived Start: 12-30-2023 Influenza vaccination Influenza Vacc ine (#1) [facility] Start: 1958 Pneumococcal Vaccine : 65+ Years (1 of 2 - PCV) Pneumococcal Vaccine: 65+ Years (1 of 2 - PCV) [facility] Start: 1949 Glaucoma screening Diabetes: R etinopathy Screening [facility] Start: 1945 Pneumococcal Vaccine : 65+ Years (1 of 2 - PCV) Pneumococcal Vaccine: 65+ Years (1 of 2 - PCV) [facility] Start: 1939 Hemoglobin A1c measurement Diabetes: Hemoglobin A1C [facility] Start: 1939 Medicare Annual Wellness (AWV) Medicare Annual Wellness (AWV) [facility] Immunizations Immunization Date Immunization Notes Care Provider Fa cility 02-09-2023 influenza virus vacc ine, unspecified formulation Mart Neil MD Work Phone: [facility] Payers Date Payer Category Payer Medicare (Managed Care) [employer]AGE [id number] 2023 Medicare [id number] 2022 Private Health Insurance AARP Vt mber [id number] 2004 Medicare MEDICARE [id number] 1959 Medicare [id number] 1959 Unknown [id number] 1939 Unknown [id number] 1939 Unknown [id number] 1939 Unknown [id number] 1939 Unknown [id number] 1939 Unknown [id number] 1939 Unknown [id number] Social History Date Type Detail Facility Start: 04-11-2023 Tobacco smoking stat RUSTIS Never smoked tobacco [facility] Start: 04-11-2023 Tobacco use and exposure Smoke less tobacco non-user [facility] Start: 04-11-2024 End: 10-13-2024 Alcoholic beverage intake Lifetime non-drinker (finding) [facility] Start: 04-11-2024 End: 10-13-2024 History of Social function [facility] Start: 04-11-2024 End: 10-13-2024 Tobacco use panel [facility] Start: 1940 Sex assigned at Not on file [facility] Functional Status Date Assessment Result Facility 10-13-2024 Patient Health Quest ionnaire 2 item (PHQ-2) [Reported] [facility] History of Present illness Narrative 10-13-2024 Mart Neil MD - 10/13/2024 11:06 AM EDTMronni Neil MD - 10/13/2024 10:30 AM EDT Note Date & Type Note Facility 10-13-2024 History of Presen t illness Narrative Associated Problem(s): Medicare annual wellness visit, subsequent Due for labs. Discussed proper diet and regular aerobic exercise. Need aerobic exercise 5-6 days a week for 30 minutes at a time. Smaller portions and limit total calories. Tetanus every 10 years. Advised not to smoke. Images from the original note were not [...] hyperglycemia, without long-term current use of insulin ([facility]) Relevant Orders Hemoglobin A1c Essential hypertension, benign Dyslipidemia Medicare annual wellness visit, subsequent - Primary Due for labs. Discussed proper diet and regular aerobic exercise. Need aerobic exercise 5-6 days a week for 30 minutes at a time. Smaller portions and limit total calories. Tetanus every 10 years. Advised not to smoke. documented in this encounter [facility] History of Present illness Narrative 04-11-2024 Mart Neil MD - 04/11/2024 10:50 AM Diogenes Neil MD - 04/11/2024 10:50 AM Diogenes Neil MD - 04/11/2024 10:49 AM Diogenes Neil MD - 04/11/2024 10:49 AM EST Note Date & Type Note Facility 04-11-2024 History of Presen t illness Narrative Associated Problem(s): Type 2 diabetes mellitus with hyperglycemia, without long-term current use of insulin ([facility]) Not checking BS and due for A1C. Stick to ADA diet and limit carbs. Associated Problem(s): Seasonal allergic rhinitis due to pollen Symptoms controlled with OTC and continue. Associated Problem(s): Essential hypertension, benign (CMS/HCC) BP controlled and monitor PRN. Associated Problem(s): DDD (degenerative disc disease), lumbar Occasional pain and use OTC PRN. Images from the original note were not included. Subjective Patient ID: Aliza Nicholas is a 84 y.o. female who presents for Follow-up (6 m). Follow up DM, HTN, back pain, and allergies. Patient feels well today. Not checking BS away from office. Tries to eat well and stick to ADA diet but reports occasional splurges. Denies signs of elevated BS such as polyuria, polyphagia or polydipsia. Due for A1C. Checking BP PRN and typically controlled. BP normal today. Taking medication daily and tolerating without side effects. Back pain stable. Mild pain in low back and across top hips. No radiation into gluteal region or down legs. Pain increased with activity such as bending or lifting. Using OTC PRN and helps when needed. Allergies controlled with medication. No congestion or rhinorrhea. No CRAVEN or sinus pressure. Ears not plugged or popping. Review of Systems Respiratory: Negative for cough, [...] hyperglycemia, without long-term current use of insulin (CMS/HCC) - Primary Not checking BS and due for A1C. Stick to ADA diet and limit carbs. Relevant Orders Microalbumin / creatinine, urine ratio Hemoglobin A1c Essential hypertension, benign (CMS/HCC) BP controlled and monitor PRN. Relevant Orders Basic metabolic panel DDD (degenerative disc disease), lumbar Occasional pain and use OTC PRN. Dyslipidemia (CMS/HCC) Relevant Orders Lipid panel Seasonal allergic rhinitis due to pollen Symptoms controlled with OTC and continue. Encounter for long-term (current) use of medications Relevant Orders CBC and differential Hepatic function panel documented in this encounter [facility] Evaluation note Note Date & Type Note Facility Evaluation note Diagnosis Type 2 diabetes mellitus with hyperglycemia, without long-term current use of insulin (CMS/HCC)- Primary Essential hypertension, benign (CMS/HCC) Essential hypertension, benign Seasonal allergic rhinitis due to pollen DDD (degenerative disc disease), lumbar Degeneration of lumbar or lumbosacral intervertebral disc Dyslipidemia (CMS/HCC) Other and unspecified hyperlipidemia Encounter for long-term (current) use of medications Encounter for long-term (current) use of other medications Type 2 diabetes mellitus with hyperglycemia, without long-term current use of insulin (CMS/HCC)- Primary Essential hypertension, benign (CMS/HCC) Essential hypertension, benign DDD (degenerative disc disease), lumbar Degeneration of lumbar or lumbosacral intervertebral disc Seasonal allergic rhinitis due to pollen Type 2 diabetes mellitus with hyperglycemia, without long-term current use of insulin (CMS/HCC)- Primary Essential hypertension, benign (CMS/HCC) Essential hypertension, benign Degeneration of intervertebral disc of lumbar region with discogenic back pain Seasonal allergic rhinitis due to pollen Dyslipidemia (CMS/HCC) Other and unspecified hyperlipidemia Encounter for long-term (current) use of medications Encounter for long-term (current) use of other medications documented in this encounter [facility] Evaluation note Note Date & Type Note Facility Evaluation note Diagnosis Type 2 diabetes mellitus with hyperglycemia, without long-term current use of insulin (HCC)- Primary Essential hypertension, benign Essential hypertension, benign Seasonal allergic rhinitis due to pollen DDD (degenerative disc disease), lumbar Degeneration of lumbar or lumbosacral intervertebral disc Dyslipidemia Other and unspecified hyperlipidemia Encounter for long-term (current) use of medications Encounter for long-term (current) use of other medications Type 2 diabetes mellitus with hyperglycemia, without long-term current use of insulin (HCC)- Primary Essential hypertension, benign Essential hypertension, benign DDD (degenerative disc disease), lumbar Degeneration of lumbar or lumbosacral intervertebral disc Seasonal allergic rhinitis due to pollen Type 2 diabetes mellitus with hyperglycemia, without long-term current use of insulin (HCC)- Primary Essential hypertension, benign Essential hypertension, benign Degeneration of intervertebral disc of lumbar region with discogenic back pain Seasonal allergic rhinitis due to pollen Dyslipidemia Other and unspecified hyperlipidemia Encounter for long-term (current) use of medications Encounter for long-term (current) use of other medications Medicare annual wellness visit, subsequent- Primary Type 2 diabetes mellitus with hyperglycemia, without long-term current use of insulin (HCC) Essential hypertension, benign Essential hypertension, benign Dyslipidemia Other and unspecified hyperlipidemia Type 2 diabetes mellitus with other specified complication (HCC) documented in this encounter [facility] Summary Purpose Family History No Family History Records FoundNo Family History Records Found Advance Directives No Advanced Directives Records FoundNo Advanced Directives Records Found Additional Source Comments INFORMATION SOURCE (unrecogn ized section and content) DATE CREATED AUTHOR 08/16/2022 [facility] DATE CREATED AUTHOR AUTHOR'S ORGANIZ ATION 10/14/2024 [facility] Reason for Visit (unrecogniz ed section and content) Reason Comments Follow-up 6 m Reason Comments Medicare Annual Wellness Visit Subsequen t wellness Care Teams (unrecognized sec tion and content) Receiver Setter Relationship Specialty Start Date End Date Mart Neil MD [address] [place] [address] PCP - General Family Medicine 04/10/23 Receiver Setter Relationship Specialty Start Date End Date Mart Neil MD [address] [place] [address] PCP - General Family Medicine 04/10/23 Receiver Setter Relationship Specialty Start Date End Date Mart Neil MD [address] [place] [phone] PCP [facility] 04/10/23 Receiver Setter Relationship Specialty Start Date End Date Mart Neil MD [address] [place] [phone] PCP [facility] 04/10/23 Mart Neil MD [address] [place] [phone] [facility] 06/06/24 Receiver Setter Relationship Specialty Start Date End Date Mart Neil MD [address] [place] [phone] [facility] 04/10/23 Mart Neil MD [address] [place] [phone] [facility] 06/06/24 FOR RECORDS PERTAINING TO PATIENTS WHO ARE OR HAVE BEEN ENROLLED IN A CHEMICAL DEPENDENCY/SUBSTANCEABUSE PROGRAM, SOME INFORMATION MAY BE OMITTED. This clinical summary was aggregated from multiple sources. Caution should be exercised in using it in the provision of clinical care. This summary normalizes information from multiple sources, and as a consequence, information in this document may materially change the coding, format and clinical context of patient data. In addition, data may be omitted in some cases. CLINICAL DECISIONS SHOULD BE BASED ON THE PRIMARY CLINICAL RECORDS. [facility] [email or web address] provides no warranty or guarantee of the accuracy or completeness of information in this document.
[2024-10-15 11:33] LABS: Estimated Average Glucose 169 mg/dL; Glycohemoglobin A1C 7.5 % (4.5-6.2)
== END 2024-10-15 10:03 | disposition home or self-care (01) ==
PROVIDERS: PCP Family Medicine; Visit Provider Family Medicine
DX: E11.65 Type 2 diabetes mellitus with hyperglycemia (principal)
CPT/HCPCS: 36415; 83036